=== PATIENT | female | born 1945 | race Caucasian/White ===

== ENCOUNTER 2017-04-10 12:01 | Inpatient (IN) | payer OTHER ==
[~2017-04-10] VITALS: Ht 160 cm; Wt 63.7 kg
[~2017-04-10 12:01] MED LIST: FLUT500M2 IN; GABA-494 PO; SERT-160 PO; [UNRECOGNIZED DRUG - CODE] EX
[2017-04-10 13:28] LABS: Basophils # (auto) 0 uL; Basophils % (auto) 0.2 % (0.0-2.0); Eosinophils # (auto) 0 uL; Eosinophils % (auto) 0.3 % (0.0-7.0); Hematocrit 43.9 % (36.0-46.0); Hemoglobin 15.1 g/dL (12.2-16.2); Lymphocytes # (auto) 1.3 uL; Lymphocytes % (auto) 23.6 % (10.0-50.0); Mean Corpuscular Hemoglobin 31.6 pg (28.0-32.0); Mean Corpuscular Hgb Conc. 34.3 g/dL (32.0-36.0); Mean Corpuscular Volume 92.2 fL (80.0-100.0); Mean Platelet Volume 8.7 fL (7.4-10.4); Monocytes # (auto) 0.3 uL; Monocytes % (auto) 6.3 % (0.0-12.0); Neutrophils # (auto) 3.8 uL; Neutrophils % (auto) 69.6 % (37.0-80.0); Platelet Count (auto) 271 10^3/uL (140-450); Red Cell Distribution Width 13.4 % (11.6-16.0); White Blood Cell 5.4 10^3/uL (4.4-10.8)
[2017-04-10] MEDS ORDERED: SODIUM CHLORIDE 0.9% 1,000 ML IVB ONE (13:29)
[2017-04-10 13:34] LABS: Urine Bilirubin Negative (Negative); Urine Blood Negative /uL (Negative); Urine Color Yellow (Yellow); Urine Glucose Normal (Normal); Urine Ketone Negative (Negative); Urine Nitrite Negative (Negative); Urine RBC <1 /hpf (0 - 4); Urine Squamous Epithelial Cell FEW /hpf (<5); Urine Urobilinogen Normal (Negative)
[2017-04-10 13:41] LABS: Albumin 3.6 g/dL (3.4-5.0); Anion Gap 10 (5-15); Aspartate Aminotransferase 17 U/L (15-37); BUN/Creatinine Ratio 18.4; Blood Urea Nitrogen 14 mg/dL (7-18); Calcium 8.5 mg/dL (8.5-10.1); Carbon Dioxide 26 mmol/L (21-32); Chloride 107 mmol/L (98-107); GFR African American 96 mL/min; GFR Non-African American 79 mL/min; Glucose 99 mg/dL (74-106); Sodium 143 mmol/L (136-145)
[2017-04-10 13:45] LABS: Alkaline Phosphatase 97 U/L (45-117); Bilirubin, Total 0.5 mg/dL (0.2-1.0); Total Protein 7.7 g/dL (6.4-8.2)
[2017-04-10 14:38] LABS: INR 0.95 (0.9-1.15); Partial Thromboplastin Time 26.6 sec (22.64-33.71); Prothrombin Time 10.4 sec (9.37-12.3)
[2017-04-10] MEDS ORDERED: HYDROcodone-ACET 5/325MG TAB PO PRN (16:45)
[2017-04-10] MEDS ORDERED: LORazepam 0.5 MG TAB PO PRN (16:45)
[2017-04-10] MEDS ORDERED: MORPHINE SULF INJ 2 MG/ML SYRINGE 1ML IV PRN ×2 (16:45)
[2017-04-10] MEDS ORDERED: ACETAMINOPHEN 500 MG TAB PO PRN (16:45)
[2017-04-10] MEDS ORDERED: ALBUTEROL SULF 2.5 MG/0.5ML(0.5%) NEB SOLN NEB PRN (16:45)
[2017-04-10] MEDS ORDERED: TEMAZEPAM 15 MG CAP PO PRN (16:45)
[2017-04-10] MEDS ORDERED: PROMETHAZINE HCL 25 MG/ML 1ML IV PRN (16:45)
[2017-04-10] MEDS ORDERED: LACTULOSE 20Gm/30ML SOLN PO PRN (16:45)
[2017-04-10] MEDS ORDERED: NITROGLYCERIN 0.4 MG SL TAB SL PRN (16:45)
[2017-04-10] MEDS: SODIUM CHLORIDE 0.9% 1,000 ML IV SCH (16:46)
[2017-04-10 17:07] LABS: Cholesterol 193 mg/dL (< 200); HDL Cholesterol 71 mg/dL (40-59); LDL Cholesterol 115 mg/dL (< 100); Triglycerides 73 mg/dL (< 150)
[2017-04-10] MEDS ORDERED: ASPirin 81 mg TAB PO ONE (20:00)
[2017-04-10] MEDS: methylPREDNISolone SOD SUCC 40 MG/ML VL IV SCH (20:17)
[2017-04-10] MEDS: DOXYCYCLINE HYC 100MG/250ML 250 ML IV SCH (20:23)
[2017-04-10 21:00] VITALS: BP 110/63
[2017-04-10] MEDS: GABAPENTIN 100 MG CAP PO SCH (21:49)
[2017-04-10] MEDS ORDERED: ATORVASTATIN 20 MG TAB PO SCH (22:00)
[2017-04-11] MEDS: SODIUM CHLORIDE 0.9% 1,000 ML IV SCH ×2 (03:18→17:27)
[2017-04-11 04:41] VITALS: BP 119/66
[2017-04-11] MEDS: GABAPENTIN 100 MG CAP PO SCH ×2 (06:08→14:00)
[2017-04-11] MEDS: IPRATROPIUM BROM 0.5 MG/2.5ML INH SOL NEB SCH ×4 (06:29→18:40)
[2017-04-11] MEDS: ALBUTEROL SULF 2.5 MG/0.5ML(0.5%) NEB SOLN NEB SCH ×4 (06:29→18:40)
[2017-04-11] MEDS: methylPREDNISolone SOD SUCC 40 MG/ML VL IV SCH (07:54)
[2017-04-11] MEDS: DOXYCYCLINE HYC 100MG/250ML 250 ML IV SCH (07:54)
[2017-04-11 08:00] VITALS: BP 122/61
[2017-04-11 09:30] VITALS: BP 122/61
[2017-04-11] MEDS ORDERED: FLUTICASONE PROPIONATE 0.05% EX SCH (10:00)
[2017-04-11] MEDS ORDERED: SERTRALINE HCL 50 MG TAB PO SCH (10:00)
[2017-04-11] MEDS ORDERED: ASPirin 81 mg TAB PO SCH (10:00)
[2017-04-11] MEDS ORDERED: FLUTICASONE PROP NASAL SPR 0.05 % (50MCG) 16GM EACHNOSTRI SCH (10:00)
[2017-04-11 13:30] VITALS: BP 122/61
[2017-04-11 16:19] VITALS: BP 112/63
[2017-04-12 15:08] LABS: Temperature: 22.9 C (20.0-25.0)
== END 2017-04-11 21:25 | disposition short-term general hospital (02) | DRG 947 ==
LOC: ER 12:01 → EDUNIT# 12:01 → TELE 12:02 → TELE-EAST 21:01
PROVIDERS: ADMIT Internal Medicine; ATTEND Internal Medicine
DX: R53.1 Weakness (principal); I63.9 Cerebral infarction, unspecified; G45.9 Transient cerebral ischemic attack, unspecified; E78.5 Hyperlipidemia, unspecified; F32.9 Major depressive disorder, single episode, unspecified; F41.9 Anxiety disorder, unspecified; R26.89 Other abnormalities of gait and mobility; K59.00 Constipation, unspecified; G47.00 Insomnia, unspecified; I49.3 Ventricular premature depolarization; G50.0 Trigeminal neuralgia; I10 Essential (primary) hypertension; J44.9 Chronic obstructive pulmonary disease, unspecified; M06.9 Rheumatoid arthritis, unspecified; Z82.49 Family history of ischemic heart disease and other diseases of the circulatory system; Z79.899 Other long term (current) drug therapy
CPT/HCPCS: 36415; 70450; 71010; 80053; 80061; 80307; 81001; 82550; 82607; 82746; 82962; 83605; 83735; 84443; 84484; 85025; 85610; 85652; 85730; 87040; 93005; 93306; 93886; 94640; 94761; J3490